=== PATIENT | female | born 1970 | race Caucasian/White ===

== ENCOUNTER → 2023-08-23 | Outpatient (CLI) | payer OTHER | LOC: M SLEEP 20:00 | PROVIDERS: ATTEND Nurse Practitioner Family | DX: G47.33 Obstructive sleep apnea (adult) (pediatric) (principal) ==

== ENCOUNTER → 2025-01-23 | Outpatient (CLI) | payer MEDICARE, OTHER | LOC: M PLARAD 10:21 | PROVIDERS: ATTEND Nurse Practitioner Family | DX: R91.1 Solitary pulmonary nodule (principal) | CPT/HCPCS: 78815; A9552 ==

== ENCOUNTER → 2025-02-19 | Outpatient (CLI) | payer OTHER | LOC: M PLAIMG 12:53 | PROVIDERS: ATTEND Internal Medicine Pulmonary Disease | DX: R91.1 Solitary pulmonary nodule (principal); R59.0 Localized enlarged lymph nodes ==

== ENCOUNTER → 2025-02-21 | Outpatient (CLI) | payer OTHER ==
[~2025-02-21] MED LIST: PROA1AER2 IN
[2025-02-21 11:46] LABS: PLATELET COUNT, AUTOMATED 339 10^3/uL (150-450)
[2025-02-21 12:00] LABS: INR 1.02
== END ==
LOC: M LAB 11:04
PROVIDERS: ATTEND Internal Medicine Pulmonary Disease
DX: Z01.812 Encounter for preprocedural laboratory examination (principal)

== ENCOUNTER → 2025-02-21 | Outpatient (CLI) | payer OTHER ==
[2025-02-21 11:46] LABS: BASO # 0.1 10^3/uL (0.0-0.2); BASO % 0.6 % (0.0-1.0); EOS # 0.3 10^3/uL (0.0-0.5); EOS % 2.9 % (0.0-3.0); LYMPH # 2.8 10^3/uL (1.5-5.0); LYMPH % 32.2 % (24.0-44.0); MONO # 0.6 10^3/uL (0.0-0.8); MONO % 6.7 % (2.0-8.0); NEUTROPHILS # 5.0 10^3/uL (1.5-8.5); NEUTROPHILS % 57.5 % (36.0-66.0); PLATELET COUNT, AUTOMATED 309 10^3/uL (150-450)
[2025-02-21 12:10] LABS: ALT/SGPT 21 U/L (7.0-40); AST/SGOT 22 U/L (<34); CALCIUM LEVEL 9.3 MG/DL (8.5-10.1); CARBON DIOXIDE LEVEL 28 MMOL/L (20-31); CHLORIDE LEVEL 104 MMOL/L (98-107); CHOLESTEROL LEVEL 195 MG/DL (<200); CHOLESTEROL RISK RATIO 2.99 (<5); CREATININE FOR GFR 0.78 MG/DL (0.55-1.30); GLOMERULAR FILTRATION RATE > 90.0 (>51); LDL CHOLESTEROL 116.1 MG/DL (<100); NON-HDL-C 129.9 MG/DL; POTASSIUM SERUM 4.4 MMOL/L (3.5-5.1); SODIUM LEVEL 141 MMOL/L (136-145); TRIGLYCERIDES LEVEL 69 MG/DL (<150)
== END ==
LOC: M LAB 11:01
PROVIDERS: ATTEND Nurse Practitioner Family
DX: Z01.812 Encounter for preprocedural laboratory examination (principal); G47.33 Obstructive sleep apnea (adult) (pediatric); E66.01 Morbid (severe) obesity due to excess calories; Z68.42 Body mass index [BMI] 45.0-49.9, adult; R00.2 Palpitations; K21.9 Gastro-esophageal reflux disease without esophagitis

== ENCOUNTER 2025-02-28 07:33 | Day surgery (SDC) | payer OTHER ==
[~2025-02-28] VITALS: Ht 162.6 cm; Wt 136.7 kg
[2025-02-28] MEDS: ALBUTEROL SULFATE 2.5 MG/0.5 ML INH CONCENTRATE NEB SOLN INH ONE (06:00)
[2025-02-28] MEDS: LIDOCAINE PRES-FREE 2% 10 ML AMP INH ONE (06:00)
[2025-02-28] MEDS: LR 1,000 ML IV SCH (07:55)
[2025-02-28] MEDS ORDERED: LIDOCAINE 1% SDV 5 ML VIAL SC PRN (07:55)
[2025-02-28] MEDS ORDERED: ESSETAB4 PO (08:06)
[2025-02-28] MEDS ORDERED: MAGN400C PO (08:06)
[2025-02-28] MEDS: CETACAINE SPRAY 5 GM As Ordered ONE (08:45)
[2025-02-28] MEDS ORDERED: LR 1,000 ML IV SCH (09:30)
[2025-02-28] MEDS: ONDANSETRON 4MG 2ML VIAL IV PRN (09:57)
[2025-02-28 10:40] VITALS: BP 140/81; TEMP 97.2; O2SAT 98
== END 2025-02-28 11:08 | disposition home or self-care (01) ==
LOC: M SDC 07:33
PROVIDERS: ATTEND Internal Medicine Pulmonary Disease
DX: J98.11 Atelectasis (principal); K21.9 Gastro-esophageal reflux disease without esophagitis; G47.33 Obstructive sleep apnea (adult) (pediatric); Z79.51 Long term (current) use of inhaled steroids; R06.83 Snoring; Z79.899 Other long term (current) drug therapy
CPT/HCPCS: 31624; 31627; 31654; 76000; 87070; 87102; 87116; 87205; 87206; 93005; J2405; J3010; S2900

== ENCOUNTER → 2025-06-13 | Outpatient (CLI) | payer OTHER ==
[~2025-06-13] MED LIST changes: +ESSETAB4 PO; +MAGN400C PO
== END ==
LOC: M PLAIMG 09:31
PROVIDERS: ATTEND Internal Medicine Pulmonary Disease
DX: R91.8 Other nonspecific abnormal finding of lung field (principal)